=== PATIENT | female | born 1975 | race Caucasian/White ===

== ENCOUNTER 2016-12-03 07:26 | Emergency (ER) | payer MEDICAID ==
[~2016-12-03] VITALS: Ht 154.9 cm; Wt 116.6 kg
[2016-12-03 12:20] VITALS: BP 129/76
== END 2016-12-03 12:20 | disposition home or self-care (01) ==
LOC: ED 07:26
DX: M54.5 Low back pain (principal); E66.9 Obesity, unspecified
CPT/HCPCS: J1170; Q0162

== ENCOUNTER 2017-02-28 13:35 | Emergency (ER) | payer OTHER ==
[~2017-02-28] VITALS: Ht 162.6 cm; Wt 108.9 kg
[2017-02-28 17:14] VITALS: BP 140/79
== END 2017-02-28 17:14 | disposition home or self-care (01) ==
LOC: ED 13:35
DX: H10.212 Acute toxic conjunctivitis, left eye (principal)

== ENCOUNTER 2017-10-26 20:21 | Emergency (ER) | payer MEDICAID ==
[~2017-10-26] VITALS: Ht 162.6 cm; Wt 111.1 kg
[2017-10-26 20:27] VITALS: Ht 162.6 cm; Wt 111.1 kg
[2017-10-26 22:19] VITALS: BP 101/53
== END 2017-10-26 22:19 | disposition home or self-care (01) ==
LOC: ED 20:21
DX: J45.901 Unspecified asthma with (acute) exacerbation (principal); I10 Essential (primary) hypertension; Z88.6 Allergy status to analgesic agent; Z88.8 Allergy status to other drugs, medicaments and biological substances
CPT/HCPCS: J7620; Q0092

== ENCOUNTER 2018-12-28 11:07 | Emergency (ER) | payer SELFPAY ==
[~2018-12-28] VITALS: Ht 160 cm; Wt 113.4 kg
[2018-12-28 11:11] VITALS: Ht 160 cm; Wt 113.4 kg
[2018-12-28 13:23] VITALS: BP 112/58
== END 2018-12-28 13:34 | disposition home or self-care (01) ==
LOC: ED 11:07
DX: H81.10 Benign paroxysmal vertigo, unspecified ear (principal); R11.2 Nausea with vomiting, unspecified; J45.909 Unspecified asthma, uncomplicated; I10 Essential (primary) hypertension; Z98.890 Other specified postprocedural states; Z88.6 Allergy status to analgesic agent
CPT/HCPCS: J8597; Q0162